=== PATIENT | female | born 1980 | race American Indian/Alaskan Native ===

== ENCOUNTER 2022-03-20 19:23 | Emergency (ER) | payer MEDICAID ==
[2022-03-20] MEDS ORDERED: Amoxicillin/Clavulanate K 875-125 MG Tab PO ONE (20:34)
[2022-03-20] MEDS ORDERED: Ketorolac 30 MG/ML SDV IM ONE (20:34)
== END 2022-03-20 21:15 | disposition home or self-care (01) ==
LOC: DL.ED 19:23
DX: K04.7 Periapical abscess without sinus (principal); K02.9 Dental caries, unspecified; R03.0 Elevated blood-pressure reading, without diagnosis of hypertension; Z88.1 Allergy status to other antibiotic agents
CPT/HCPCS: 87081; 87430; 96372; 99283; A9270-GY; J1885

== ENCOUNTER 2022-04-12 23:44 | Emergency (ER) | payer MEDICAID ==
[2022-04-13] MEDS ORDERED: Acetaminophen 325 MG Tab PO ONE (01:19)
[2022-04-13] MEDS ORDERED: LORazepam 0.5 MG Tab PO ONE (01:22)
== END 2022-04-13 01:36 | disposition home or self-care (01) ==
LOC: DL.ED 23:44
DX: S00.83XA Contusion of other part of head, initial encounter (principal); S10.93XA Contusion of unspecified part of neck, initial encounter; R00.0 Tachycardia, unspecified; Z88.1 Allergy status to other antibiotic agents; Y04.0XXA Assault by unarmed brawl or fight, initial encounter
CPT/HCPCS: 36415; 70450; 70486; 71046; 72125; 80053; 84484; 85025; 93005; 93010; 99284; A9270

== ENCOUNTER 2022-08-11 17:12 | Emergency (ER) | payer SELFPAY ==
[2022-08-11] MEDS ORDERED: Meclizine 12.5 MG Tab PO ONE (19:10)
== END 2022-08-11 19:47 | disposition home or self-care (01) ==
LOC: DL.ED 17:12
DX: R42 Dizziness and giddiness (principal); J45.909 Unspecified asthma, uncomplicated; Z88.1 Allergy status to other antibiotic agents; Z77.22 Contact with and (suspected) exposure to environmental tobacco smoke (acute) (chronic)
CPT/HCPCS: 99283; A9270; 99282

== ENCOUNTER 2022-08-13 03:38 | Emergency (ER) | payer SELFPAY ==
[2022-08-13] MEDS ORDERED: Sodium Chloride 0.9% 10 ML Syringe FLUSH PRN (03:57)
[2022-08-13] MEDS ORDERED: Sodium Chloride 0.9% 1,000 ML IV ONE (03:59)
[2022-08-13 04:19] LABS: BASOPHILS PERCENT AUTO 0.5 % (0.0-1.0); EOSINOPHILS PERCENT AUTO 0.9 % (1.0-3.0); HEMOGLOBIN 12.7 g/dL (12.0-16.0); LYMPHOCYTES PERCENT AUTO 38.7 % (20.5-50.1); MEAN CORPUSCULAR HEMOGLOBIN 30.5 pg (27.0-34.0); MEAN CORPUSCULAR HGB CONC 32.6 g/dL (33.0-35.0); MEAN CORPUSCULAR VOLUME 93.5 fL (80-100); NEUTROPHILS PERCENT AUTO 51.9 % (42.2-75.2); PLATELET COUNT,PLT 320 10^3/uL (150-450); RED BLOOD CELL COUNT 4.17 10^6/uL (4.2-5.4); WHITE BLOOD CELL COUNT,WBC 7.4 10^3/uL (5.0-10.0)
[2022-08-13 04:26] LABS: AMPHETAMINES,URINE NEGATIVE (NEGATIVE); BARBITURATES,URINE NEGATIVE (NEGATIVE); BENZODIAZEPINE,URINE NEGATIVE (NEGATIVE); MDMA (ECSTASY), URINE NEGATIVE (NEGATIVE); METHADONE,URINE NEGATIVE (NEGATIVE); METHAMPHETAMINES,URINE POSITIVE (NEGATIVE); OPIATES,URINE NEGATIVE (NEGATIVE); OXYCODONE,URINE NEGATIVE (NEGATIVE); PHENCYCLIDINE,URINE NEGATIVE (NEGATIVE); TCA,URINE NEGATIVE (NEGATIVE)
[2022-08-13 05:11] LABS: ALBUMIN 3.2 g/dL (3.4-5.0); ANION GAP 14.3 mEq/L (7-13); BILIRUBIN TOTAL 0.2 mg/dL (0.2-1.0); BUN/CREATININE RATIO 15.8 (No establ ref range); CALCIUM 7.8 mg/dL (8.5-10.1); CREATININE 0.76 mg/dL (0.55-1.02); EST CRCL DRUG DOSING (CG) 87.66 mL/min; POTASSIUM,K 3.3 mmol/L (3.5-5.1); PROTEIN TOTAL,TP 6.7 g/dL (6.4-8.2)
[2022-08-13 05:15] LABS: A/G RATIO 0.91
== END 2022-08-13 09:33 | disposition home or self-care (01) ==
LOC: DL.ED 03:38
DX: R41.0 Disorientation, unspecified (principal); F15.10 Other stimulant abuse, uncomplicated; F10.921 Alcohol use, unspecified with intoxication delirium; J45.909 Unspecified asthma, uncomplicated; Z88.1 Allergy status to other antibiotic agents; Y90.6 Blood alcohol level of 120-199 mg/100 ml
CPT/HCPCS: 36415; 70450; 71045; 72125; 80053; 80305; 80307; 81025; 85025; 96360; 96361; 99285; C1758; J7030; J3490

== ENCOUNTER 2023-01-04 23:25 | Emergency (ER) | payer MEDICAID ==
[2023-01-05 00:27] LABS: APPEARANCE,URINE CLEAR (CLEAR); BILIRUBIN,URINE SMALL (NEGATIVE); COLOR,URINE YELLOW (YELLOW); GLUCOSE,URINE NEGATIVE (NEGATIVE); KETONES,URINE 40 (NEGATIVE); LEUKOCYTE ESTERASE,URINE TRACE (NEGATIVE); NITRITE,URINE NEGATIVE (NEGATIVE); OCCULT BLOOD,URINE NEGATIVE (NEGATIVE); PH,URINE 5.5 (5.0-9.0); PROTEIN,URINE 30 (NEGATIVE); UROBILINOGEN,URINE 0.2 mg/dL (0.2-1.0)
[2023-01-05 00:31] LABS: AMPHETAMINES,URINE POSITIVE (NEGATIVE); BARBITURATES,URINE NEGATIVE (NEGATIVE); BENZODIAZEPINE,URINE NEGATIVE (NEGATIVE); MDMA (ECSTASY), URINE POSITIVE (NEGATIVE); METHADONE,URINE NEGATIVE (NEGATIVE); METHAMPHETAMINES,URINE POSITIVE (NEGATIVE); OPIATES,URINE NEGATIVE (NEGATIVE); OXYCODONE,URINE NEGATIVE (NEGATIVE); PHENCYCLIDINE,URINE NEGATIVE (NEGATIVE); TCA,URINE NEGATIVE (NEGATIVE)
[2023-01-05] MEDS ORDERED: Nitrofurantoin Monohydrate/Macrocrystalline 100 MG Cap PO ONE (00:34)
[2023-01-05] MEDS ORDERED: Take Home: Nitrofurantoin Monohydrate/Macrocrystalline 100 MG, 6 Cap Pack PO ONE (00:35)
[2023-01-05 00:37] LABS: BACTERIA,URINE FEW /HPF (0-FEW/HPF); EPITHELIAL CELLS,URINE FEW /HPF (NOT SEEN); MUCUS,URINE OCCASIONAL /LPF (NOT SEEN); RBC,URINE NOT SEEN /HPF (0-5)
[2023-01-05 00:38] LABS: BASOPHILS PERCENT AUTO 0.4 % (0.0-1.0); EOSINOPHILS PERCENT AUTO 0.4 % (1.0-3.0); HEMATOCRIT 38.5 % (37.0-47.0); HEMOGLOBIN 12.6 g/dL (12.0-16.0); LYMPHOCYTES PERCENT AUTO 25.3 % (20.5-50.1); MEAN CORPUSCULAR HGB CONC 32.7 g/dL (33.0-35.0); MEAN CORPUSCULAR VOLUME 91.7 fL (80-100); MONOCYTES PERCENT AUTO 9.7 % (2-8); NEUTROPHILS PERCENT AUTO 64.2 % (42.2-75.2); PLATELET COUNT,PLT 470 10^3/uL (150-450); WHITE BLOOD CELL COUNT,WBC 10.2 10^3/uL (5.0-10.0)
[2023-01-05 00:39] LABS: A/G RATIO 0.8; ALANINE AMINOTRANSFERASE,ALT 32 U/L (14-59); ALBUMIN 3.5 g/dL (3.4-5.0); ALKALINE PHOSPHATASE 148 U/L (46-116); ANION GAP 13.4 mEq/L (7-13); ASPARTATE AMNIOTRANSFERASE,AST 17 U/L (15-37); BILIRUBIN TOTAL 0.4 mg/dL (0.2-1.0); BLOOD UREA NITROGEN,BUN 16 mg/dL (7-18); BUN/CREATININE RATIO 18.6 (No establ ref range); CALCIUM 8.8 mg/dL (8.5-10.1); CARBON DIOXIDE,CO2 26 mmol/L (21-32); CHLORIDE,CL 100 mmol/L (98-107); CREATININE 0.86 mg/dL (0.55-1.02); EST CRCL DRUG DOSING (CG) 72.77 mL/min; GLUCOSE RANDOM 93 mg/dL (70-99); POTASSIUM,K 3.4 mmol/L (3.5-5.1); PROTEIN TOTAL,TP 7.7 g/dL (6.4-8.2); SODIUM,NA 136 mmol/L (136-145)
[2023-01-05 00:40] LABS: ESTIMATED GFR 87 mL/min (>=60); ETHANOL BLOOD MEDICAL < 3 mg/dL (0)
[2023-01-08 15:47] LABS: C.TRACHOMATIS BY TMA Positive (Negative); M GENITALIUM Positive (Negative); M GENITALIUM SOURCE Urine; N.GONORRHOEAE BY TMA Negative (Negative); SOURCE Urine
== END 2023-01-05 01:15 | disposition home or self-care (01) ==
LOC: DL.ED 23:25
DX: N39.0 Urinary tract infection, site not specified (principal); F15.10 Other stimulant abuse, uncomplicated; R19.7 Diarrhea, unspecified; F16.10 Hallucinogen abuse, uncomplicated; J45.909 Unspecified asthma, uncomplicated; Z79.899 Other long term (current) drug therapy; Z88.1 Allergy status to other antibiotic agents
CPT/HCPCS: 36415; 80053; 80305-QW; 80307; 81001; 81025; 85025; 87086; 87491; 87563; 87591; 99283; 99284; A9270-GY

== ENCOUNTER 2023-01-25 03:49 | Observation (INO) | payer MEDICAID ==
[2023-01-25] MEDS ORDERED: Lactated Ringers 1,000 ML IV ONE ×3 (04:04→06:43)
[2023-01-25 04:29] LABS: BASOPHILS PERCENT AUTO 0.4 % (0.0-1.0); EOSINOPHILS PERCENT AUTO 0.6 % (1.0-3.0); HEMATOCRIT 34.3 % (37.0-47.0); LYMPHOCYTES PERCENT AUTO 27.6 % (20.5-50.1); MEAN CORPUSCULAR HEMOGLOBIN 29.3 pg (27.0-34.0); MEAN CORPUSCULAR HGB CONC 32.1 g/dL (33.0-35.0); MEAN CORPUSCULAR VOLUME 91.5 fL (80-100); MONOCYTES PERCENT AUTO 6.8 % (2-8); NEUTROPHILS PERCENT AUTO 64.6 % (42.2-75.2); PLATELET COUNT,PLT 334 10^3/uL (150-450); RED BLOOD CELL COUNT 3.75 10^6/uL (4.2-5.4); WHITE BLOOD CELL COUNT,WBC 8.5 10^3/uL (5.0-10.0)
[2023-01-25 04:33] LABS: APPEARANCE,URINE SLIGHTLY CLOUDY (CLEAR); BILIRUBIN,URINE NEGATIVE (NEGATIVE); COLOR,URINE YELLOW (YELLOW); GLUCOSE,URINE NEGATIVE (NEGATIVE); KETONES,URINE TRACE (NEGATIVE); LEUKOCYTE ESTERASE,URINE SMALL (NEGATIVE); NITRITE,URINE NEGATIVE (NEGATIVE); OCCULT BLOOD,URINE SMALL (NEGATIVE); PROTEIN,URINE 100 (NEGATIVE)
[2023-01-25 04:34] LABS: AMPHETAMINES,URINE NEGATIVE (NEGATIVE); BARBITURATES,URINE NEGATIVE (NEGATIVE); BENZODIAZEPINE,URINE NEGATIVE (NEGATIVE); MDMA (ECSTASY), URINE NEGATIVE (NEGATIVE); METHADONE,URINE NEGATIVE (NEGATIVE); METHAMPHETAMINES,URINE POSITIVE (NEGATIVE); OPIATES,URINE NEGATIVE (NEGATIVE); OXYCODONE,URINE NEGATIVE (NEGATIVE); PHENCYCLIDINE,URINE NEGATIVE (NEGATIVE); TCA,URINE POSITIVE (NEGATIVE)
[2023-01-25 04:35] LABS: ALANINE AMINOTRANSFERASE,ALT 22 U/L (14-59); ALBUMIN 2.6 g/dL (3.4-5.0); ALKALINE PHOSPHATASE 120 U/L (46-116); ANION GAP 11.1 mEq/L (7-13); ASPARTATE AMNIOTRANSFERASE,AST 12 U/L (15-37); BILIRUBIN TOTAL 0.3 mg/dL (0.2-1.0); BLOOD UREA NITROGEN,BUN 17 mg/dL (7-18); BUN/CREATININE RATIO 16.5 (No establ ref range); CARBON DIOXIDE,CO2 25 mmol/L (21-32); CHLORIDE,CL 103 mmol/L (98-107); CREATININE 1.03 mg/dL (0.55-1.02); EST CRCL DRUG DOSING (CG) 62.07 mL/min; GLUCOSE RANDOM 143 mg/dL (70-99); POTASSIUM,K 3.1 mmol/L (3.5-5.1); PROTEIN TOTAL,TP 6.1 g/dL (6.4-8.2); SODIUM,NA 136 mmol/L (136-145)
[2023-01-25 04:37] LABS: A/G RATIO 0.74; ACETAMINOPHEN 0 ug/mL (10-30 (Therapeutic)); ESTIMATED GFR 70 mL/min (>=60); ETHANOL BLOOD MEDICAL < 3 mg/dL (0)
[2023-01-25 04:41] LABS: BACTERIA,URINE MODERATE /HPF (0-FEW/HPF); EPITHELIAL CELLS,URINE MANY /HPF (NOT SEEN); RBC,URINE 0-5 /HPF (0-5)
[2023-01-25] MEDS ORDERED: Potassium Chloride 10 MEQ Tab.ER PO ONE (05:03)
[2023-01-25 06:21] LABS: MAGNESIUM 1.6 mg/dL (1.8-2.4)
[2023-01-25] MEDS ORDERED: MVI, Adult with Vitamin K 10 ML, Folic Acid 1 MG, Thiamine 100 MG in Lactated Ringers 1... IV ONE ×4 (07:57)
[2023-01-25] MEDS ORDERED: LORazepam 2 MG/ML SDV IV PRN (07:57)
[2023-01-25] MEDS ORDERED: Thiamine 100 MG in Sodium Chloride 0.9% 50 ML IV ONE (07:57)
[2023-01-25] MEDS ORDERED: Haloperidol Lactate 5 MG/ML SDV IM PRN (07:57)
[2023-01-25] MEDS ORDERED: LORazepam 0.5 MG Tab PO PRN (07:57)
[2023-01-25] MEDS ORDERED: Magnesium Hydroxide 400 MG/5 ML Susp 30 ML Cup PO PRN (08:05)
[2023-01-25] MEDS ORDERED: Ketorolac 30 MG/ML SDV IVPUSH PRN (08:05)
[2023-01-25] MEDS ORDERED: Polyethylene Glycol 3350 Powder 17 GM Packet PO PRN (08:05)
[2023-01-25] MEDS ORDERED: Ibuprofen 600 MG Tab PO PRN (08:05)
[2023-01-25] MEDS ORDERED: Albuterol/Ipratropium 3.0-0.5 MG/3 ML Neb Soln NEB PRN (08:05)
[2023-01-25] MEDS ORDERED: Ondansetron 4 MG/2 ML SDV IVPUSH PRN (08:05)
[2023-01-25] MEDS ORDERED: HYDROmorphone 0.5 MG/0.5 ML Syringe IVPUSH PRN (08:05)
[2023-01-25] MEDS ORDERED: Sennosides/Docusate Sodium 50-8.6 MG Tab PO PRN (08:05)
[2023-01-25] MEDS ORDERED: Naloxone 2 MG/2 ML Syringe IVPUSH PRN (08:13)
[2023-01-25] MEDS ORDERED: Sodium Chloride 0.9% 10 ML Syringe FLUSH PRN (08:13)
[2023-01-25] MEDS ORDERED: traMADol 50 MG Tab PO PRN (08:15)
[2023-01-25] MEDS ORDERED: Metoprolol Tartrate 5 MG/5 ML SDV IVPUSH PRN (08:16)
[2023-01-25] MEDS ORDERED: hydrALAZINE 20 MG/ML SDV IVPUSH PRN (08:16)
[2023-01-25] MEDS ORDERED: MVI, Adult with Vitamin K 10 ML, Folic Acid 1 MG, Thiamine 200 MG in Lactated Ringers 1... IV ONE ×4 (09:55)
[2023-01-25] MEDS: Pantoprazole 40 MG Vial IVPUSH SCH ×2 (09:59→22:33)
[2023-01-25] MEDS: Sodium Chloride 0.9% 10 ML Syringe FLUSH SCH ×2 (10:00→22:33)
[2023-01-25] MEDS ORDERED: Midodrine 5 MG Tab PO PRN (10:17)
[2023-01-25] MEDS ORDERED: Magnesium Sulfate/Water 2 GM in Premix Bag 1 BAG IV ONE ×2 (10:18→17:00)
[2023-01-25] MEDS ORDERED: Potassium Chloride 20 MEQ in Premix Bag 1 BAG IV ONE ×2 (10:19→17:00)
[2023-01-25 18:30] LABS: ALBUMIN 2.3 g/dL (3.4-5.0); ANION GAP 8.5 mEq/L (7-13); BILIRUBIN TOTAL 0.2 mg/dL (0.2-1.0); BUN/CREATININE RATIO 10.6 (No establ ref range); CALCIUM 7.9 mg/dL (8.5-10.1); CREATININE 0.85 mg/dL (0.55-1.02); EST CRCL DRUG DOSING (CG) 72.05 mL/min; MAGNESIUM 2.5 mg/dL (1.8-2.4); POTASSIUM,K 4.5 mmol/L (3.5-5.1); PROTEIN TOTAL,TP 5.4 g/dL (6.4-8.2)
[2023-01-25 18:31] LABS: A/G RATIO 0.74
[2023-01-25] MEDS ORDERED: Nicotine 21 MG/24 Hr Patch TRDERM ONE (18:51)
[2023-01-25] MEDS: Lactated Ringers 1,500 ML IV ONE ×2 (20:12→23:04)
[2023-01-25] MEDS ORDERED: Non-Formulary Medication 1 Each (Melatonin [Melatonin] 3 MG Capsule) PO SCH (21:00)
[2023-01-25] MEDS: Folic Acid 1 MG Tab PO SCH (22:33)
[2023-01-26 06:43] LABS: BASOPHILS PERCENT AUTO 0.5 % (0.0-1.0); EOSINOPHILS PERCENT AUTO 1.8 % (1.0-3.0); MEAN CORPUSCULAR HEMOGLOBIN 29.6 pg (27.0-34.0); MEAN CORPUSCULAR HGB CONC 31.4 g/dL (33.0-35.0); MEAN CORPUSCULAR VOLUME 94.3 fL (80-100); MONOCYTES PERCENT AUTO 7.9 % (2-8); NEUTROPHILS PERCENT AUTO 54.8 % (42.2-75.2); PLATELET COUNT,PLT 315 10^3/uL (150-450); RED BLOOD CELL COUNT 3.71 10^6/uL (4.2-5.4); WHITE BLOOD CELL COUNT,WBC 6.2 10^3/uL (5.0-10.0)
[2023-01-26 07:19] LABS: ALBUMIN 2.2 g/dL (3.4-5.0); ANION GAP 9.4 mEq/L (7-13); BILIRUBIN TOTAL 0.2 mg/dL (0.2-1.0); BUN/CREATININE RATIO 7.7 (No establ ref range); CALCIUM 7.9 mg/dL (8.5-10.1); CREATININE 0.78 mg/dL (0.55-1.02); EST CRCL DRUG DOSING (CG) 78.52 mL/min; MAGNESIUM 2.2 mg/dL (1.8-2.4); POTASSIUM,K 4.4 mmol/L (3.5-5.1); PROTEIN TOTAL,TP 5.6 g/dL (6.4-8.2)
[2023-01-26 07:35] LABS: A/G RATIO 0.65
[2023-01-26] MEDS: Sodium Chloride 0.9% 10 ML Syringe FLUSH SCH (08:42)
[2023-01-26] MEDS: Folic Acid 1 MG Tab PO SCH (08:43)
[2023-01-26] MEDS: Pantoprazole 40 MG Vial IVPUSH SCH (08:43)
[2023-01-26] MEDS ORDERED: FLUoxetine 10 MG Cap PO SCH (09:00)
[2023-01-26] MEDS ORDERED: Nicotine 21 MG/24 Hr Patch TRDERM SCH (09:00)
[2023-01-26] MEDS ORDERED: Lactated Ringers 1,000 ML IV ONE (09:17)
[2023-01-26] MEDS ORDERED: LORazepam 2 MG/ML SDV IVPUSH PRN ×2 (13:14→13:28)
[2023-01-26] MEDS ORDERED: Flumazenil 0.1 MG/ML 5 ML MDV IVPUSH PRN (13:14)
[2023-01-26] MEDS ORDERED: Thiamine 100 MG Tab PO SCH (21:00)
[2023-01-26] MEDS ORDERED: Multivitamin Tab PO SCH (21:00)
== END 2023-01-26 15:57 ==
LOC: DL.ED 03:49 → DL.MS 06:52 → DL.ED 07:12
PROVIDERS: ADMIT Internal Medicine; ATTEND Internal Medicine
DX: T65.92XA Toxic effect of unspecified substance, intentional self-harm, initial encounter (principal); N17.9 Acute kidney failure, unspecified; F32.A Depression, unspecified; J45.909 Unspecified asthma, uncomplicated; E87.6 Hypokalemia; E83.42 Hypomagnesemia; E88.09 Other disorders of plasma-protein metabolism, not elsewhere classified; F41.9 Anxiety disorder, unspecified; D64.9 Anemia, unspecified; F17.200 Nicotine dependence, unspecified, uncomplicated; Z20.822 Contact with and (suspected) exposure to COVID-19; Z79.899 Other long term (current) drug therapy; Z88.1 Allergy status to other antibiotic agents
CPT/HCPCS: 36415; 80053; 80143; 80179; 80305-QW; 80307; 81001; 81025; 83735; 84484; 85025; 87086; 87088; 87186; 93005; 93010; 96360; 96361; 96365; 96366; 96368; 96375; 96376; 99222; 99238; 99285; 99285-25; A9270-GY; C9113; G0378; J2060; J3411; J3475; J3480; J3490; J7120; U0002

== ENCOUNTER 2023-06-22 18:42 | Emergency (ER) | payer SELFPAY ==
[2023-06-22 21:14] LABS: BASOPHILS PERCENT AUTO 0.3 % (0.0-1.0); EOSINOPHILS PERCENT AUTO 1.2 % (1.0-3.0); HEMATOCRIT 36.6 % (37.0-47.0); LYMPHOCYTES PERCENT AUTO 27.9 % (20.5-50.1); MEAN CORPUSCULAR HEMOGLOBIN 28.5 pg (27.0-34.0); MEAN CORPUSCULAR HGB CONC 32.8 g/dL (33.0-35.0); MEAN CORPUSCULAR VOLUME 86.9 fL (80-100); MONOCYTES PERCENT AUTO 6.1 % (2-8); NEUTROPHILS PERCENT AUTO 64.5 % (42.2-75.2); PLATELET COUNT,PLT 391 10^3/uL (150-450); RED BLOOD CELL COUNT 4.21 10^6/uL (4.2-5.4); WHITE BLOOD CELL COUNT,WBC 9.1 10^3/uL (5.0-10.0)
[2023-06-22] MEDS: Sodium Chloride 0.9% 10 ML Syringe FLUSH PRN (21:20)
[2023-06-22 21:33] LABS: ALANINE AMINOTRANSFERASE,ALT 30 U/L (14-59); ALBUMIN 3.2 g/dL (3.4-5.0); ALKALINE PHOSPHATASE 151 U/L (46-116); ANION GAP 11.6 mEq/L (7-13); ASPARTATE AMNIOTRANSFERASE,AST 16 U/L (15-37); BILIRUBIN TOTAL 0.4 mg/dL (0.2-1.0); BLOOD UREA NITROGEN,BUN 10 mg/dL (7-18); BUN/CREATININE RATIO 12.8 (No establ ref range); CALCIUM 8.5 mg/dL (8.5-10.1); CARBON DIOXIDE,CO2 27 mmol/L (21-32); CHLORIDE,CL 104 mmol/L (98-107); CREATININE 0.78 mg/dL (0.55-1.02); EST CRCL DRUG DOSING (CG) 99.57 mL/min; GLUCOSE RANDOM 95 mg/dL (70-99); POTASSIUM,K 3.6 mmol/L (3.5-5.1); PROTEIN TOTAL,TP 7.2 g/dL (6.4-8.2); SODIUM,NA 139 mmol/L (136-145)
[2023-06-22 21:36] LABS: ACETAMINOPHEN 0 ug/mL (10-30 (Therapeutic)); ESTIMATED GFR 97 mL/min (>=60); ETHANOL BLOOD MEDICAL < 3 mg/dL (0)
[2023-06-22 22:11] LABS: APPEARANCE,URINE CLEAR (CLEAR); BILIRUBIN,URINE SMALL (NEGATIVE); COLOR,URINE YELLOW (YELLOW); GLUCOSE,URINE NEGATIVE (NEGATIVE); KETONES,URINE 15 (NEGATIVE); LEUKOCYTE ESTERASE,URINE NEGATIVE (NEGATIVE); NITRITE,URINE NEGATIVE (NEGATIVE); OCCULT BLOOD,URINE MODERATE (NEGATIVE); PH,URINE 5.5 (5.0-9.0); PROTEIN,URINE TRACE (NEGATIVE)
[2023-06-22 22:14] LABS: AMPHETAMINES,URINE POSITIVE (NEGATIVE); BARBITURATES,URINE NEGATIVE (NEGATIVE); BENZODIAZEPINE,URINE NEGATIVE (NEGATIVE); MDMA (ECSTASY), URINE NEGATIVE (NEGATIVE); METHADONE,URINE NEGATIVE (NEGATIVE); METHAMPHETAMINES,URINE POSITIVE (NEGATIVE); OPIATES,URINE NEGATIVE (NEGATIVE); OXYCODONE,URINE NEGATIVE (NEGATIVE); PHENCYCLIDINE,URINE NEGATIVE (NEGATIVE); TCA,URINE NEGATIVE (NEGATIVE)
[2023-06-22 22:35] LABS: BACTERIA,URINE MODERATE /HPF (0-FEW/HPF); EPITHELIAL CELLS,URINE MODERATE /HPF (NOT SEEN); MUCUS,URINE FEW /LPF (NOT SEEN); RBC,URINE 20-30 /HPF (0-5)
[2023-06-22] MEDS: OLANZapine 10 MG Vial IM ONE (23:11)
== END 2023-06-22 23:11 ==
LOC: DL.ED 18:42
DX: R45.851 Suicidal ideations (principal); Z88.1 Allergy status to other antibiotic agents; Z79.51 Long term (current) use of inhaled steroids; Z79.899 Other long term (current) drug therapy
CPT/HCPCS: 36415; 80053; 80143; 80179; 80305; 80307; 81001; 85025; 96372; 99285; J2405; J3490

== ENCOUNTER 2024-01-25 19:39 | Emergency (ER) | payer SELFPAY | END 2024-01-25 20:15 | disposition left against medical advice (07) | LOC: DL.ED 19:39 | DX: Z53.21 Procedure and treatment not carried out due to patient leaving prior to being seen by health care provider (principal) ==

== ENCOUNTER 2024-01-28 18:51 | Emergency (ER) | payer SELFPAY ==
[2024-01-28] MEDS: LORazepam 0.5 MG Tab PO ONE (19:29)
[2024-01-28 21:03] LABS: BASOPHILS PERCENT AUTO 0.1 % (0.0-1.0); EOSINOPHILS PERCENT AUTO 0.1 % (1.0-3.0); HEMATOCRIT 43.3 % (37.0-47.0); HEMOGLOBIN 14.2 g/dL (12.0-16.0); MEAN CORPUSCULAR HEMOGLOBIN 30.7 pg (27.0-34.0); MEAN CORPUSCULAR HGB CONC 32.8 g/dL (33.0-35.0); MEAN CORPUSCULAR VOLUME 93.5 fL (80-100); MONOCYTES PERCENT AUTO 6.1 % (2-8); NEUTROPHILS PERCENT AUTO 81.7 % (42.2-75.2); PLATELET COUNT,PLT 378 10^3/uL (150-450); RED BLOOD CELL COUNT 4.63 10^6/uL (4.2-5.4); WHITE BLOOD CELL COUNT,WBC 14.4 10^3/uL (5.0-10.0)
[2024-01-28 21:16] LABS: APPEARANCE,URINE SLIGHTLY CLOUDY (CLEAR); BILIRUBIN,URINE NEGATIVE (NEGATIVE); COLOR,URINE YELLOW (YELLOW); GLUCOSE,URINE NEGATIVE (NEGATIVE); KETONES,URINE TRACE (NEGATIVE); LEUKOCYTE ESTERASE,URINE NEGATIVE (NEGATIVE); NITRITE,URINE NEGATIVE (NEGATIVE); OCCULT BLOOD,URINE NEGATIVE (NEGATIVE); PROTEIN,URINE 100 (NEGATIVE)
[2024-01-28 21:23] LABS: AMPHETAMINES,URINE NEGATIVE (NEGATIVE); BARBITURATES,URINE NEGATIVE (NEGATIVE); BENZODIAZEPINE,URINE NEGATIVE (NEGATIVE); MDMA (ECSTASY), URINE NEGATIVE (NEGATIVE); METHADONE,URINE NEGATIVE (NEGATIVE); METHAMPHETAMINES,URINE NEGATIVE (NEGATIVE); OPIATES,URINE NEGATIVE (NEGATIVE); OXYCODONE,URINE NEGATIVE (NEGATIVE); PHENCYCLIDINE,URINE NEGATIVE (NEGATIVE); TCA,URINE NEGATIVE (NEGATIVE)
[2024-01-28 21:26] LABS: A/G RATIO 0.9; ALANINE AMINOTRANSFERASE,ALT 24 U/L (14-59); ALBUMIN 3.7 g/dL (3.4-5.0); ALKALINE PHOSPHATASE 141 U/L (46-116); ANION GAP 11.5 mEq/L (7-13); ASPARTATE AMNIOTRANSFERASE,AST 22 U/L (15-37); BILIRUBIN TOTAL 0.4 mg/dL (0.2-1.0); BLOOD UREA NITROGEN,BUN 12 mg/dL (7-18); CALCIUM 8.6 mg/dL (8.5-10.1); CARBON DIOXIDE,CO2 29 mmol/L (21-32); CHLORIDE,CL 101 mmol/L (98-107); CREATININE 1.34 mg/dL (0.55-1.02); EST CRCL DRUG DOSING (CG) 46.23 mL/min; GLUCOSE RANDOM 83 mg/dL (70-99); POTASSIUM,K 3.5 mmol/L (3.5-5.1); PROTEIN TOTAL,TP 7.9 g/dL (6.4-8.2); SODIUM,NA 138 mmol/L (136-145)
[2024-01-28 21:28] LABS: ACETAMINOPHEN 0 ug/mL (10-30 (Therapeutic)); ESTIMATED GFR 51 mL/min (>=60); ETHANOL BLOOD MEDICAL < 3 mg/dL (0)
[2024-01-28 22:04] LABS: AMORPHOUS SEDIMENT,URINE FEW /HPF (NOT SEEN); BACTERIA,URINE FEW /HPF (0-FEW/HPF); EPITHELIAL CELLS,URINE MANY /HPF (NOT SEEN); MUCUS,URINE MANY /LPF (NOT SEEN); RBC,URINE 0-5 /HPF (0-5)
[2024-01-28] MEDS: Amoxicillin/Clavulanate K 875-125 MG Tab PO ONE (22:59)
[2024-01-28] MEDS: Ketorolac 30 MG/ML SDV IM ONE (23:00)
== END 2024-01-28 23:10 | disposition home or self-care (01) ==
LOC: DL.ED 18:51
DX: T74.11XA Adult physical abuse, confirmed, initial encounter (principal); J01.90 Acute sinusitis, unspecified; F41.9 Anxiety disorder, unspecified; J45.909 Unspecified asthma, uncomplicated; F17.210 Nicotine dependence, cigarettes, uncomplicated; Z88.1 Allergy status to other antibiotic agents; Z88.8 Allergy status to other drugs, medicaments and biological substances
CPT/HCPCS: 36415; 70450; 72125; 73030; 80053; 80143; 80179; 80305; 80307; 81001; 81025; 85025; 96372; 99285; A9270; J1885